=== PATIENT | male | born 1950 | race Caucasian/White ===

== ENCOUNTER → 2021-04-29 | Outpatient (CLI) | payer MEDICARE ==
[2021-04-29 11:12] LABS: HGB 14.2 gm/dL (13.0-17.5); MCHC 33.8 g/dL (31.0-37.0); MCV 94.7 fL (80.0-100.0); Mean Platelet Volume 6.8; Platelet Count 317 k/uL (150-450); RBC 4.43 m/uL (4.30-5.90); RDW 12.9 % (11.5-15.5); WBC 6.6 k/uL (3.8-10.6)
[2021-04-29 11:21] LABS: Albumin 4.6 g/dL (3.5-5.0); Calcium 10.2 mg/dL (8.4-10.2); Potassium 4.9 mmol/L (3.5-5.1); Total Bilirubin 0.7 mg/dL (0.2-1.3); Total Protein 7.6 g/dL (6.3-8.2)
[2021-04-29 11:30] LABS: INR 0.9 (<1.2); Partial Thromboplastin Time 27.6 sec (22.0-30.0)
[2021-04-29 11:57] LABS: Appearance,Urine Clear (Clear); Bilirubin,Urine Negative (Negative); Blood,Urine Negative (Negative); Color,Urine Yellow; Glucose,Urine (UA) Negative (Negative); Ketones,Urine Negative (Negative); Leukocyte Esterase,Urine Negative (Negative); Nitrite,Urine Negative (Negative); PH, Urine 5.5 (5.0-8.0); Protein,Urine Negative (Negative); Specific Gravity,Urine 1.018 (1.001-1.035); Urobilinogen,Urine <2.0 mg/dL (<2.0)
== END | disposition home or self-care (01) ==
LOC: LABPAT 10:19
PROVIDERS: ATTEND Orthopaedic Surgery
DX: Z01.812 Encounter for preprocedural laboratory examination (principal)
CPT/HCPCS: 80053; 81003; 85027; 85610; 85730; 87070; 93005

== ENCOUNTER 2021-05-12 11:43 | Day surgery (SDC) | payer MEDICARE ==
[~2021-05-12 11:43] MED LIST: ACETAMINOPHEN TAB 500 MG TAB PO PRN; DEXAMETHASONE SOD PHOSPHATE 10 MG/ML 1 ML VIAL IVP PRN; DEXAMETHASONE SOD PHOSPHATE 4 MG/ML 1 ML VIAL IV ONE; DOCUSATE 100 MG CAP PO PRN; FAMOTIDINE 20 MG/2 ML VIAL IVP PRN; HYDROmorphone 0.5 MG/0.5 ML SYRINGE IVP PRN; KETOROLAC 15 MG/ML 1 ML VIAL IVP PRN; ONDANSETRON 4 MG/2 ML VIAL IVP PRN; TRANEXAMIC ACID 1,000 MG in SODIUM CHLORIDE 0.9% 100 ML IVPB PRN; oxyCODONE ER 10 MG TAB.ER.12H PO PRN
[2021-05-12] MEDS: LACTATED RINGERS 1,000 ML IV SCH ×2 (12:30→19:28)
[2021-05-12] MEDS ORDERED: ROPIVACAINE/EPI/CLONIDINE/KET 50 ML SYRINGE MISCELLANE PRN (12:33)
[2021-05-12] MEDS ORDERED: LIDOCAINE 1% INJ 10MG/ML (20 ML MDV) ONE (13:25)
[2021-05-12] MEDS ORDERED: ePHEDrine 50 MG/ML 1 ML AMP ONE (13:25)
[2021-05-12] MEDS ORDERED: fentaNYL (PF) 50 MCG/ML 2 ML AMP ONE (13:25)
[2021-05-12] MEDS ORDERED: TRANEXAMIC ACID 1,000 MG/10 ML VIAL ONE (13:25)
[2021-05-12] MEDS ORDERED: GLYCOPYRROLATE 0.2 MG/ML 2 ML VIAL ONE (13:25)
[2021-05-12] MEDS ORDERED: SUCCINYLCHOLINE CHLORIDE 100 MG/5 ML SYR IV ONE (13:25)
[2021-05-12] MEDS ORDERED: ROCURONIUM 10 MG/ML (5 ML VIAL) IV ONE (13:25)
[2021-05-12] MEDS ORDERED: PROPOFOL 10 MG/ML 20 ML VIAL IV ONE (13:25)
[2021-05-12] MEDS ORDERED: NEOSTIGMINE 1 MG/ML 10 ML VIAL ONE (13:25)
[2021-05-12] MEDS ORDERED: SODIUM CHLORIDE 0.9% 100 ML BAG ONE (13:25)
[2021-05-12] MEDS ORDERED: PHENYLEPHRINE-0.9% NACL SYG 1,000 MCG/10 ML SYRINGE ONE (13:25)
[2021-05-12] MEDS ORDERED: MIDAZOLAM 2 MG/2 ML VIAL ONE (13:25)
[2021-05-12] MEDS ORDERED: SODIUM CHLORIDE 0.9% 100 ML BAG IRRIGATION ONE (14:17)
--- NOTE | 2021-05-12 16:04 | FL ---
EXAMINATION TYPE: FL guidance operating room DATE OF EXAM: 05/12/2021 HISTORY: Fluoroscopy time 50 seconds of fluoroscopy provided. IMPRESSION: 1. Fluoroscopy time.
--- NOTE | 2021-05-12 16:05 | XR ---
EXAMINATION TYPE: XR Hip Limited RT DATE OF EXAM: 05/12/2021 COMPARISON: NONE HISTORY: Postop TECHNIQUE: One view submitted. FINDINGS: There is postsurgical change in near anatomic alignment. There is soft tissue edema and emphysema. IMPRESSION: 1. Postoperative change. Appears in near-anatomic alignment.
--- NOTE | 2021-05-12 16:12 | P.OP ---
Date of Procedure: 05/12/21 Preoperative Diagnosis: Right severe hip osteoarthritis Postoperative Diagnosis: Same Procedure(s) Performed: Right direct anterior total hip arthroplasty Implants: 1. Cascadia Trident 2 size 58 mm cup augmented with 2 screws 2. Verenice accolade 2 size #8, standard offset femoral stem 3. Biolox delta 40 mm, -2.5 mm head Anesthesia: GETA Surgeon: Jair Higgins Accountant Cost #1: Aminah Allan Estimated Blood Loss (ml): 200 IV fluids (ml): 1,600 Pathology: none sent Condition: stable Disposition: PACU Indications for Procedure: The patient is a very pleasant previously healthy 71-year-old male who developed severe and incapacitating right hip pain secondary to osteoarthritis. The patient initially presented to another provider with knee pain and came to see me. We got an MRI of his right hip followed by x-rays both of which showed severe arthritis. The patient failed a long course of conservative treatment and had incapacitating pain. We both decided to go forward with an elective to radha hip placement. We discussed the potential risks and complications of total hip arthroplasty through a direct anterior approach including a 70 not limited to risks from anesthesia, superficial infection, deep periprosthetic joint infection, damage to local blood pulses are nerves particularly the lateral femoral cutaneous nerve, intraoperative fracture, postoperative periprosthetic fracture, limb length discrepancy, hip dislocation, iliopsoas impingement, DVT, PE, other medical complications, and inability to regain preinjury level of function, the satisfaction of surgical outcome, need for revision surgery, and possibly loss of life or limb. The patient provided both his verbal and written consent to go forward with surgery. Description of Procedure: The patient identified in preop holding and the correct right leg was marked with my initials. I reviewed the consent form with the patient and all of his questions were answered. The patient was brought back to the operating room. He was given a general anesthetic, preoperative antibiotics, and tranexamic acid ball still on the gurney. His leg lengths were felt and he felt 1 mm short on the operative side. The patient was then carefully transferred onto a hand table after his boots were placed. He was secured to the Gloria table. A perineal post was placed. Nonsterile drapes were applied. A timeout was performed identifying the correct patient, operative extremity, and procedure. Preoperative AP pelvis matching the standing AP pelvis taken in the office was obtained and metallic bar was used to make measurements on both the ipsilateral and contralateral hip for leg length and offset these are reference during surgery. The right leg was then prepped and draped in the standard sterile fashion. Prior to starting surgery timeout was performed identifying the correct patient, operative extremity, and procedure. X A standard longitudinal incision was made for direct anterior process of the hip. Skin incision made with a scalpel and dissection was carried down carefully to subcutaneous tissue with electrocautery. The fascia over the tensor was incised longitudinally in line with the skin incision. I bluntly developed the interval between the tensor and sartorius. A blunt tipped cobra was placed superior to the femoral neck. The deep involving fascia of the tensor was incised. The circumflex vessels were identified and controlled with bipolar sealant. The capsular fat was elevated and a second blunt tipped cobra was placed inferior to the neck. I then developed the interval between the rectus and capsule and a blunt-tipped Lyndsey was placed over the anterior brim of the acetabulum. The capsulotomy was then incised in superior and inferior capsular flaps were elevated and released. The neck cut was marked out with Bovie based on the sagittal and fluoroscopy was used to verify the level of the neck cut. The neck cut was then made with a sagittal saw. Traction was pulled through the Gloria table followed by 45 of external rotation. The corkscrews placed in the femoral head. The femoral head was then removed. On inspection appeared severely arthritic. Was handed off the back table and measured to be 55 mm. The acetabulum was then circumferentially exposed. Labrum and pulvinar were excised. The acetabulum appeared markedly arthritic. A 55 mm reamer was then used to ream down to the medial wall. I then expanded up to a 57 mm reamer which had good contact with the subchondral bone. On inspection we're down to the medial wall and there was a healthy bed of cancellus bone. The anterior and posterior wall felt intact. I then dispensed a 58 mm cup and gently tapped it into position. Once I verified the cuff had a solid bite fluoroscopy was brought in. I matched the intraoperative fluoroscopic AP pelvis to standing AP pelvis in the office and then fully seated the cup taking care to optimize inclination and anteversion. The cup was fully seated and had excellent bite. 2 screws were placed augmented the press fit. The cup was thoroughly irrigated. A liner for 40 mm head was gently tapped into place. Attention was then turned to the femur. The pedal femoral ligament and remnants of the superolateral capsule were released. The femur was elevated. I then gained entrance to the canal with a box osteotome followed by blunt-tipped canal sound. We then broached up to a size 8 which felt stable. We cycled around that size 8 broach to verify stability. The neck cut was brought down flush with the broach using a calcar planar. We then trialed after all instruments and retractors removed. The hip was cycled to 90 of external rotation and felt stable. An AP pelvis was taken with the metallic bar and adjustments were calculated compared to the preoperative image. It was then carefully dislocated. The wound was thoroughly irrigated. The final stem was tapped into place. The final head was gently impacted onto the trunnion after cleaning off the trunnion to engage the Hill taper. The socket was thoroughly irrigated. The hip was reduced. The hip felt stable to external rotation and 90. Soft tissue tension felt adequate. The final AP and lateral of the proximal femur was obtained followed by an AP pelvis with metallic bar to confirm adjustments in leg length and offset. The wound was then thoroughly irrigated and closed in layers. I verified that all instrument, sponge, and sharp counts were correct. The patient was then carefully transferred off the Gloria table. His boots were removed. His leg lengths felt symmetric. He was brought to recovery having tolerated the procedure well. Aminah Allan PA-C was required a skilled curriculum assistant principal due to the complexity of the surgery. Plan: The patient's condition admitted overnight for 2 doses postoperative antibiotics and pain control. We'll plan on discharge home tomorrow once he passes physical therapy. He will receive aspirin 81 mg twice a day for DVT prophylaxis.
[2021-05-12] MEDS ORDERED: LACTATED RINGERS 1,000 ML IV ONE ×3 (16:19→16:50)
[2021-05-12] MEDS ORDERED: NALOXONE 0.4 MG/ML 1 ML VIAL IV PRN (16:21)
[2021-05-12] MEDS ORDERED: HYDROmorphone 0.2 MG/1 ML SYRINGE IVP PRN (16:21)
[2021-05-12] MEDS ORDERED: ONDANSETRON 4 MG/2 ML VIAL IVP PRN (16:21)
[2021-05-12] MEDS ORDERED: HYDROcodone/APAP 5-325MG 1 EACH TAB PO PRN (16:21)
[2021-05-12] MEDS ORDERED: hydrOXYzine pamoate 25 MG CAP PO PRN (16:21)
[2021-05-12] MEDS ORDERED: HYDROmorphone 0.5 MG/0.5 ML SYRINGE IVP PRN ×2 (16:21)
[2021-05-12 16:48] VITALS: RESP 16
[2021-05-12] MEDS: HYDROcodone/APAP 5-325MG 1 EACH TAB PO PRN ×2 (17:45→23:48)
[2021-05-12] MEDS: ASPIRIN 81 MG PO SCH (19:28)
[2021-05-12] MEDS ORDERED: SENNOSIDES-DOCUSATE SODIUM 1 EACH TAB PO SCH (21:00)
[2021-05-13] MEDS: HYDROcodone/APAP 5-325MG 1 EACH TAB PO PRN (05:44)
[2021-05-13] MEDS: ASPIRIN 81 MG PO SCH (07:28)
[2021-05-13 07:58] VITALS: BP 111/71; PULSE 76; TEMP 98
[2021-05-13] MEDS ORDERED: HYDROcodone/APAP 7.5-325MG 1 EACH TAB PO PRN (08:27)
[2021-05-13 10:20] LABS: Basophils # (A) 0.04 X 10*3/uL (0.00-0.10); Basophils % (A) 0.4 %; Eosinophils # (A) 0.06 X 10*3/uL (0.04-0.35); Eosinophils % (A) 0.6 %; HCT 35.8 % (39.6-50.0); HGB 11.5 g/dL (13.0-17.0); Lymphocytes # (A) 1.17 X 10*3/uL (0.90-5.00); MCH 30.4 pg (27.0-32.0); MCHC 32.1 g/dL (32.0-37.0); MCV 94.7 fL (80.0-97.0); Mean Platelet Volume 9.9 fL (9.5-12.2); Monocytes # (A) 1.02 X 10*3/uL (0.20-1.00); Monocytes % (A) 9.6 %; Neutrophils # (A) 8.25 X 10*3/uL (1.80-7.70); Neutrophils % (A) 77.8 %; Platelet Count 285 X 10*3/uL (140-440); RBC 3.78 X 10*6/uL (4.40-5.60); RDW 12.4 % (11.5-14.5)
--- NOTE | 2021-05-13 10:26 | P.CONS ---
History of Present Illness - History of Present Illness 05/13/2021 Patient is admitted for a left hip arthroplasty successfully underwent surgery clinically doing well patient has expected perioperative hypotension for which I recommended to hold off on his lisinopril for today and tomorrow and from day after he can take half a pill of 40 mg he has at home. REVIEW OF SYSTEMS: CONSTITUTIONAL: No fever, no malaise, no fatigue. HEENT: No recent visual problems or hearing problems. Denied any sore throat. CARDIOVASCULAR: No chest pain, orthopnea, PND, no palpitations, no syncope. PULMONARY: No shortness of breath, no cough, no hemoptysis. GASTROINTESTINAL: No diarrhea, no nausea, no vomiting, no abdominal pain. NEUROLOGICAL: No headaches, no weakness, no numbness. HEMATOLOGICAL: Denies any bleeding or petechiae. GENITOURINARY: Denies any burning micturition, frequency, or urgency. MUSCULOSKELETAL/RHEUMATOLOGICAL: Denies any joint pain, swelling, or any muscle pain. ENDOCRINE: Denies any polyuria or polydipsia. The rest of the 14-point review of systems is negative. PHYSICAL EXAMINATION: GENERAL: The patient is alert and oriented x3, not in any acute distress. Well developed, well nourished. HEENT: Pupils are round and equally reacting to light. EOMI. No scleral icterus. No conjunctival pallor. Normocephalic, atraumatic. No pharyngeal erythema. No thyromegaly. CARDIOVASCULAR: S1 and S2 present. No murmurs, rubs, or gallops. PULMONARY: Chest is clear to auscultation, no wheezing or crackles. ABDOMEN: Soft, nontender, nondistended, normoactive bowel sounds. No palpable organomegaly. MUSCULOSKELETAL: No joint swelling or deformity. EXTREMITIES: No cyanosis, clubbing, or pedal edema. NEUROLOGICAL: Gross neurological examination did not reveal any focal deficits. SKIN: No rashes. Assessment and plan -Left hip arthroplasty patient is clinically doing well will be discharged today -Hypertension patient has expected perioperative hypotension because of which have asked him to hold off on his antidepressive medication as mentioned above for today and tomorrow. -hyperlipidemia DVT prophylaxis: And is being discharged on aspirin twice a day Past Medical History Past Medical History: Hyperlipidemia, Osteoarthritis (OA) History of Any Multi-Drug Resistant Organisms: None Reported Additional Past Surgical History / Comment(s): RIGHT ARM SURGERY (HAD BROKEN AND DID NOT HEAL WELL AND HAD TO REBREAK) Past Anesthesia/Blood Transfusion Reactions: No Reported Reaction Past Psychological History: No Psychological Hx Reported Smoking Status: Never smoker Past Alcohol Use History: Occasional Past Drug Use History: None Reported - Past Family History Mother Additional Family Medical History / Comment(s): PANCREATIC CANCER Medications and Allergies Home Medications Medication Instructions Recorded Confirmed Type Acetaminophen Tab [Tylenol] 325 - 650 mg PO Q6H PRN 05/07/21 05/12/21 History Atorvastatin [Lipitor] 10 mg PO HS 05/07/21 05/12/21 History Ibuprofen [Motrin Ib] 200 - 400 mg PO Q6H PRN 05/07/21 05/12/21 History Timolol 0.5% Ophth Soln [Timoptic 1 drop BOTH EYES DAILY 05/12/21 05/12/21 History 0.5% Ophth Soln] Aspirin 81 mg PO BID 30 Days #60 tab 05/13/21 Rx Docusate [Colace] 100 mg PO BID #60 capsule 05/13/21 Rx HYDROcodone/APAP 7.5-325MG [[place] 1 tab PO Q4H PRN 7 Days #32 tab 05/13/21 Rx 7.5-325] lisinopriL 20 mg PO QAM #0 05/13/21 05/12/21 Rx Allergies Allergy/AdvReac Type Severity Reaction Status Date / Time No Known Allergies Allergy Verified 05/12/21 12:27 Physical Exam Vitals: Vital Signs Temp Pulse Pulse Resp BP BP Pulse Ox 05/13/21 07:58 98 F 76 16 111/71 94 L 05/13/21 02:00 98.0 F 84 16 102/67 95 05/12/21 19:00 97.6 F 82 16 100/66 97 05/12/21 17:05 97.6 F 87 16 116/77 95 05/12/21 16:58 80 16 103/63 97 05/12/21 16:43 72 16 110/69 97 05/12/21 16:28 68 18 108/64 96 05/12/21 16:13 97.7 F 86 18 101/58 98 05/12/21 12:16 97.6 F 74 16 121/86 96 Intake and Output 05/12/21 05/13/21 05/13/21 22:59 06:59 14:59 Intake Total 343 236 Output Total 200 210 Balance 143 -210 236 Intake: IV 225 Oral 118 236 Output: Drainage 210 Right Hip 210 Estimated Blood Loss 200 Other: # Voids 1 2 Weight 86 kg Results CBC & Chem 7: 05/13/21 04:23 Labs: Abnormal Lab Results - Last 24 Hours (Table) 05/13/21 Range/Units 04:23 WBC 10.60 H (4.50-10.00) X 10*3/uL RBC 3.78 L (4.40-5.60) X 10*6/uL Hgb 11.5 L (13.0-17.0) g/dL Hct 35.8 L (39.6-50.0) % Immature Gran # 0.06 H (0.00-0.04) X 10*3/uL Neutrophils # 8.25 H (1.80-7.70) X 10*3/uL Monocytes # 1.02 H (0.20-1.00) X 10*3/uL
--- NOTE | 2021-05-13 13:06 | P.DS ---
Providers Expected date of discharge: 05/13/21 Attending physician: Jair Higgins Consults: 05/12/21 16:21 Consult Physician Routine Consulting Provider: Tae Bates Consult Reason/Comments: medical management Do you want consulting provider notified?: Yes Primary care physician: Juan J Thomas MD Hospital Course: This is a 71-year-old male who was last seen in our office with complaint of continued right hip pain. The patient has a known history of degenerative arthritis of the right hip and presents to discuss surgical options. After discussion and consideration the patient elects to proceed with total right hip arthroplasty. He is seen preoperatively by his primary care physician, Dr. Mariano Thomas, and cleared for surgery. The patient is admitted to [facility] for total right hip arthroplasty. The procedure is performed without complication or sequelae. The patient is doing well post-operatively. Vital signs and postoperative labs are stable. Hemoglobin is 11.5 day of discharge. Today is post-operative day #1. The patient is seen and examined bedside. He is having mild pain in the right hip. He was up ambulating with his walker with minimal assistance last night to the bathroom. He did very well with physical therapy. He tolerated his breakfast well. He is voiding without issue. He has not yet had a bowel movement, although he denies abdominal pain. He denies chest pain, shortness breath, nausea, vomiting, fevers, chills. He denies numbness or tingling of the operative extremity. No new complaints or concerns at this time. On examination, the patient is sitting up in bed in no apparent distress. He is alert and noted 3. On inspection of the right hip, there is a clean, dry, intact OptiFoam dressing in place. There is no bleeding or drainage through the dressing. There is a Hemovac drain in place, which was pulled bedside today. There is mild swelling of the thigh, the thigh is soft and compressible. Motor and sensory function is intact of the right lower extremity. Dorsalis pedis pulse +2, the right lower extremity is warm and well-perfused with brisk capillary refill distally. The calf is soft and non-tender to palpation. The patient is discharged to home with home health care today in good condition, pending medical clearance. Please see discharge orders. Please refer to the med rec for accurate list of medications. Plan - Discharge Summary Discharge Rx Participant: Yes New Discharge Prescriptions: New Aspirin 81 mg PO BID 30 Days #60 tab Docusate [Colace] 100 mg PO BID #60 capsule HYDROcodone/APAP 7.5-325MG [[place] 7.5-325] 1 tab PO Q4H PRN 7 Days #32 tab PRN Reason: Pain Continue Atorvastatin [Lipitor] 10 mg PO HS Acetaminophen Tab [Tylenol] 325 - 650 mg PO Q6H PRN PRN Reason: Pain Ibuprofen [Motrin Ib] 200 - 400 mg PO Q6H PRN PRN Reason: Pain Timolol 0.5% Ophth Soln [Timoptic 0.5% Ophth Soln] 1 drop BOTH EYES DAILY Changed lisinopriL 20 mg PO QAM #0 Discharge Medication List Acetaminophen Tab [Tylenol] 325 - 650 mg PO Q6H PRN 05/07/21 [History] Atorvastatin [Lipitor] 10 mg PO HS 05/07/21 [History] Ibuprofen [Motrin Ib] 200 - 400 mg PO Q6H PRN 05/07/21 [History] Timolol 0.5% Ophth Soln [Timoptic 0.5% Ophth Soln] 1 drop BOTH EYES DAILY 05/12/21 [History] Aspirin 81 mg PO BID 30 Days #60 tab 05/13/21 [Rx] Docusate [Colace] 100 mg PO BID #60 capsule 05/13/21 [Rx] HYDROcodone/APAP 7.5-325MG [[place] 7.5-325] 1 tab PO Q4H PRN 7 Days #32 tab 05/13/21 [Rx] lisinopriL 20 mg PO QAM #0 05/13/21 [Rx] Follow up Appointment(s)/Referral(s): [facility], [NON-STAFF] - As Needed ([facility] will call you to schedule your in home physical therapy visits.) Jair Higgins MD [Medical Doctor] - 1 Week Activity/Diet/Wound Care/Special Instructions: Weight bear as tolerated operative leg with walker. Take pain medications as prescribed. Aspirin 81mg BID x 4 weeks for DVT prophylaxis. Keep Optifoam dressing intact until follow-up appointment. Follow-up in the office with Dr. Higgins in one week. Call the office with any questions or concerns, Discharge Disposition: HOME WITH HOME HEALTH SERVICES
== END 2021-05-13 13:22 | disposition home health service (06) ==
LOC: OR 11:43 → 4SSUR 16:14 → OR 05-13 13:22
PROVIDERS: ATTEND Orthopaedic Surgery
DX: M16.11 Unilateral primary osteoarthritis, right hip (principal); Z20.822 Contact with and (suspected) exposure to COVID-19
CPT/HCPCS: 27130; 97161; 86900; 86901; 85025; 86850; 87635; 73501; 36415; J2250; J1100; J2710; J0690 ×2; J2405; J2001; J3010; J1885; J2370; J0330; J2704; 88300

== ENCOUNTER 2021-10-26 09:18 | Day surgery (SDC) | payer MEDICARE ==
[2021-10-22 10:59] VITALS: BMI 28.8
[~2021-10-26 09:18] MED LIST changes: -ACETAMINOPHEN TAB 500 MG TAB PO PRN; -DEXAMETHASONE SOD PHOSPHATE 10 MG/ML 1 ML VIAL IVP PRN; -DEXAMETHASONE SOD PHOSPHATE 4 MG/ML 1 ML VIAL IV ONE; -DOCUSATE 100 MG CAP PO PRN; -FAMOTIDINE 20 MG/2 ML VIAL IVP PRN; -HYDROmorphone 0.5 MG/0.5 ML SYRINGE IVP PRN; -KETOROLAC 15 MG/ML 1 ML VIAL IVP PRN; +LACTATED RINGERS 1,000 ML IV SCH; +LIDOCAINE 1% (10MG/ML) FOR IV START INTRADERMA PRN; -ONDANSETRON 4 MG/2 ML VIAL IVP PRN; -TRANEXAMIC ACID 1,000 MG in SODIUM CHLORIDE 0.9% 100 ML IVPB PRN; -oxyCODONE ER 10 MG TAB.ER.12H PO PRN
[2021-10-26 09:46] VITALS: TEMP 97.5
[2021-10-26] MEDS ORDERED: PROPOFOL 10 MG/ML 20 ML VIAL IV ONE (10:14)
--- NOTE | 2021-10-26 10:17 | P.GSHP ---
History of Present Illness H&P Date: 10/26/21 Chief Complaint: Colon cancer screening 71-year-old male here today for colonoscopy. Last colonoscopy 6 years ago. Patient with personal history of colon polyps. No bowel complaints. No family history of colon cancer. Past Medical History Past Medical History: Eye Disorder, Hyperlipidemia, Hypertension, Osteoarthritis (OA) Additional Past Medical History / Comment(s): Hx elevated pressures in eyes. History of Any Multi-Drug Resistant Organisms: None Reported Past Surgical History: Orthopedic Surgery Additional Past Surgical History / Comment(s): Colonoscopies; ORIF Rt arm surgery (fx didn't heal properly); Total Rt Hip Past Anesthesia/Blood Transfusion Reactions: No Reported Reaction Smoking Status: Never smoker - Past Family History Mother Additional Family Medical History / Comment(s): PANCREATIC CANCER Medications and Allergies Home Medications Medication Instructions Recorded Confirmed Type Atorvastatin [Lipitor] 10 mg PO HS 05/07/21 10/22/21 History Timolol 0.5% Ophth Soln [Timoptic 1 drop BOTH EYES DAILY 05/12/21 10/22/21 History 0.5% Ophth Soln] lisinopriL 40 mg PO QAM 10/22/21 10/22/21 History Allergies Allergy/AdvReac Type Severity Reaction Status Date / Time No Known Allergies Allergy Verified 10/26/21 09:40 Surgical - Exam Vital Signs Temp Pulse Resp BP Pulse Ox 97.5 F L 67 20 117/77 94 L 10/26/21 09:45 10/26/21 09:45 10/26/21 09:45 10/26/21 09:45 10/26/21 09:45 Physical exam: General: Well-developed, well-nourished HEENT: Normocephalic, sclerae nonicteric Abdomen: Nontender, nondistended Extremities: No edema Neuro: Alert and oriented Assessment and Plan (1) Colon cancer screening Narrative/Plan: Will proceed with with colonoscopy. Current Visit: Yes Status: Acute Code(s): Z12.11 - ENCOUNTER FOR SCREENING FOR MALIGNANT NEOPLASM OF COLON SNOMED Code(s): 236014428
--- NOTE | 2021-10-26 10:38 | P.PCN ---
Date of Procedure: 10/26/21 Procedure(s) Performed: PREOPERATIVE DIAGNOSIS: Colon cancer screening, history of polyps POSTOPERATIVE DIAGNOSIS: Normal exam PROCEDURE: Colonoscopy ANESTHESIA: MAC SURGEON: Seb Zacarias M.D. SPECIMENS: None ENDOSCOPIC PROCEDURE: The patient was placed on the endoscopy table in the left decubitus position. The Olympus colonoscope was inserted into the anus and passed under direct visualization to the base of the cecum. The appendiceal orifice was visualized. From that point the scope was slowly withdrawn inspecting all surfaces carefully. There were no neoplastic inflammatory or polypoid lesions throughout the cecum, ascending, transverse, descending, sigmoid and rectum. There was no visible diverticulosis noted. Digital rectal examination was normal. The patient was taken to the recovery room in stable condition per anesthesia guidelines. RECOMMENDATIONS: Resume diet. Follow-up colonoscopy 5-7 years because of the patient's history of polyps.
[2021-10-26 10:46] VITALS: BP 96/65; RESP 16
[2021-10-26 11:15] VITALS: PULSE 58
== END 2021-10-26 11:30 | disposition home or self-care (01) ==
LOC: ORWHC2ENDO 09:18
PROVIDERS: ATTEND Surgery
DX: Z12.11 Encounter for screening for malignant neoplasm of colon (principal); Z86.010 Personal history of colon polyps; I10 Essential (primary) hypertension; E78.5 Hyperlipidemia, unspecified; M19.90 Unspecified osteoarthritis, unspecified site
CPT/HCPCS: G0121; J2704